=== PATIENT | male | born 1980 | race African-American/Black ===

== ENCOUNTER 2016-12-08 16:12 | Emergency (ER) | payer OTHER ==
[~2016-12-08] VITALS: Ht 175.3 cm; Wt 109.8 kg
[2016-12-08] MEDS ORDERED: IV NORMAL SALINE 1000ML BAG 1,000 ML IV SCH (16:47)
--- NOTE | 2016-12-08 16:47 | PHYS DOC ---
Past Medical History Past Medical History: Constipation, Diabetes-Type II, GERD, Hypertension, Schizophrenia, Other Additional Past Medical Histor: MR,schizo-effective d/o Past Surgical History: No Surgical History Alcohol Use: Occasionally Drug Use: None Adult General Chief Complaint Chief Complaint: ABDOMINAL PAIN HPI HPI Patient is a 35 year old female who presents with abdominal pain. Patient reports he has had pain in his abdomen, most prominent in his right lower quadrant, for the past 3 weeks. He describes a stabbing pain without clear inciting or mitigating factors. This is accompanied by nausea. He also reports he has had an intermittent fever. Of note, patient has a history of constipation. He says he is unable to remember his last bowel movement. He has not taken anything for constipation recently. Review of Systems Review of Systems Constitutional: Intermittent fever Eyes: Denies change in visual acuity or eye pain HENT: Denies nasal congestion or sore throat Respiratory: Denies cough or shortness of breath Cardiovascular: Denies chest pain GI: Abdominal pain most prominent in RLQ, nausea, vomiting, constipation. Denies bloody stools or diarrhea : Denies dysuria or hematuria Musculoskeletal: Denies back pain or joint pain Integument: Denies rash or skin lesions Neurologic: Denies headache, focal weakness or sensory changes Current Medications Current Medications Current Medications Medications (Trade) Dose Ordered Sig/Aurelio Start Time Stop Time Status Last Admin Dose Admin Info (Do NOT chart on this entry -- for MONITORING) 1 each PRN DAILY PRN 12/08/16 17:15 12/10/16 17:14 Iohexol (Omnipaque 300 Mg/ml) 75 ml 1X ONCE 12/08/16 17:00 12/08/16 17:01 DC 12/08/16 17:37 75 ML Morphine Sulfate 4 mg 1X ONCE 12/08/16 17:00 12/08/16 17:01 DC 12/08/16 17:21 4 MG Ondansetron HCl (Zofran) 4 mg 1X ONCE 12/08/16 17:00 12/08/16 17:01 DC 12/08/16 17:19 4 MG Sodium Biphosphate/ Sodium Phosphate (Fleet Adult) 133 ml 1X ONCE 12/08/16 19:30 12/08/16 19:31 DC Sodium Chloride (Iv Sodium Chloride 0.9% 1000ml Bag) 1,000 ml @ 1,000 mls/hr Q1H 12/08/16 16:47 12/08/16 17:46 DC 12/08/16 17:17 1,000 MLS/HR Allergies Allergies Allergies Coded Allergies Type Severity Reaction Last Updated Verified Penicillins Allergy Intermediate 12/08/16 Yes Sulfa (Sulfonamide Antibiotics) Allergy Intermediate 12/08/16 Yes ketorolac Allergy Intermediate 12/08/16 Yes trimethoprim Allergy Intermediate 12/08/16 Yes Physical Exam Physical Exam Constitutional: Well developed, well nourished, no acute distress, non-toxic appearance HENT: Normocephalic, atraumatic, bilateral external ears normal Eyes: EOMI, conjunctiva normal, no discharge Neck: Normal range of motion, no stridor Cardiovascular: Heart rate normal, regular rhythm, no murmur Lungs & Thorax: Bilateral breath sounds clear to auscultation Abdomen: Bowel sounds normal, soft, non-distended, RLQ TTP without guarding or rebound Skin: Warm, dry, no erythema, no rash Extremities: No obvious deformity, no edema Neurologic: Alert and oriented X 3, no gross deficits noted Current Patient Data Vital Signs Vital Signs Date Time Temp Pulse Resp B/P Pulse Ox O2 Delivery O2 Flow Rate FiO2 12/08/16 17:21 101 16 169/108 100 Room Air 12/08/16 16:36 97.7 97.7 Lab Values Laboratory Tests Test 12/08/16 16:40 White Blood Count 7.3x10^3/uL (4.0-11.0) Red Blood Count 4.46x10^6/uL (4.30-5.70) Hemoglobin 11.8g/dL (13.0-17.5) L Hematocrit 36.3% (39.0-53.0) L Mean Corpuscular Volume 81fL (79-100) Mean Corpuscular Hemoglobin 26pg (25-35) Mean Corpuscular Hemoglobin Concent 33g/dL (31-37) Red Cell Distribution Width 15.0% (11.5-14.5) H Platelet Count 182x10^3/uL (140-400) Neutrophils (%) (Auto) 54% (31-73) Lymphocytes (%) (Auto) 28% (24-48) Monocytes (%) (Auto) 15% (0-9) H Eosinophils (%) (Auto) 2% (0-3) Basophils (%) (Auto) 0% (0-3) Neutrophils # (Auto) 4.0x10^3uL (1.8-7.7) Lymphocytes # (Auto) 2.1x10^3/uL (1.0-4.8) Monocytes # (Auto) 1.1x10^3/uL (0.0-1.1) Eosinophils # (Auto) 0.1x10^3/uL (0.0-0.7) Basophils # (Auto) 0.0x10^3/uL (0.0-0.2) Sodium Level 139mmol/L (136-145) Potassium Level 4.2mmol/L (3.5-5.1) Chloride Level 102mmol/L (98-107) Carbon Dioxide Level 30mmol/L (21-32) Anion Gap 7 (6-14) Blood Urea Nitrogen 15mg/dL (8-26) Creatinine 1.1mg/dL (0.7-1.3) Estimated GFR (Cockcroft-Gault) 76.6 BUN/Creatinine Ratio 14 (6-20) Glucose Level 83mg/dL (70-99) Calcium Level 8.6mg/dL (8.5-10.1) Total Bilirubin 0.2mg/dL (0.2-1.0) Aspartate Amino Transferase (AST) 15U/L (15-37) Alanine Aminotransferase (ALT) 30U/L (16-63) Alkaline Phosphatase 50U/L (46-116) Total Protein 7.8g/dL (6.4-8.2) Albumin 3.8g/dL (3.4-5.0) Albumin/Globulin Ratio 1.0 (1.0-1.7) Lipase 85U/L (73-393) Laboratory Tests 12/08/16 16:40 Laboratory Tests 12/08/16 16:40 EKG EKG [] Radiology/Procedures Radiology/Procedures CT A/P: IMPRESSION Moderate fecal retention within the rectosigmoid region. No acute abnormality of the abdomen or pelvis is evident otherwise. Course & Med Decision Making Course & Med Decision Making Pertinent Labs and Imaging studies reviewed. (See chart for details) Patient is 35-year-old male who presents abdominal pain. Possibly related to constipation. However he does complain of right lower quadrant pain and is tender in that area, so will obtain CT abdomen/pelvis to rule out appendicitis. Labs ordered. IV fluids, pain medication, nausea medication ordered for relief of symptoms. Labs unremarkable, no leukocytosis. CT results as above. Discussed findings with patient. Discussed manual disimpaction with patient, which he declines. We will however give him a Fleet enema in the emergency department. Will plan discharge to the care of law enforcement with prescription for laxatives, instructions for follow-up, return precautions. Dragon Disclaimer Dragon Disclaimer This electronic medical record was generated, in whole or in part, using a voice recognition dictation system. Departure Departure Impression: Primary Impression: Constipation Disposition: 05 TRANSFER OTHER Condition: STABLE Patient Instructions: Constipation, Adult Additional Instructions: Thank you for allowing us to provide care today in the Emergency Department. Take the provided medication as directed. Schedule a follow up appointment with your primary care doctor. Return promptly to the Emergency Department if you develop any new or concerning symptoms. Scripts Docusate Sodium 100 Mg Capsule1 Cap PO DAILY #30 CAP Prov:JOSE ANGEL LOUIE MD 12/08/16 Sennosides (Senna)8.6 Mg Tablet8.6 Mg PO DAILY #30 Prov:JOSE ANGEL LOUIE MD 12/08/16 Polyethylene Glycol 3350 (Miralax)17 Gm Powd.pack1 Packet PO DAILY #30 PACKET Ref 0 Prov:JOSE ANGEL LOUIE MD 12/08/16 JOSE ANGEL LOUIE MD Dec 08, 2016 16:47
[2016-12-08 16:54] LABS: BASO % 0 % (0-3); EOS % 2 % (0-3); HEMATOCRIT 36.3 % (39.0-53.0); HEMOGLOBIN 11.8 g/dL (13.0-17.5); LYMPH # 2.1 x10^3/uL (1.0-4.8); LYMPH % 28 % (24-48); MEAN CORPUSCULAR HEMOGLOBIN 26 pg (25-35); MEAN CORPUSCULAR HGB CONC 33 g/dL (31-37); MEAN CORPUSCULAR VOLUME 81 fL (79-100); MONO % 15 % (0-9); NEUT % 54 % (31-73); PLATELET COUNT 182 x10^3/uL (140-400); RED BLOOD COUNT 4.46 x10^6/uL (4.30-5.70); WHITE BLOOD COUNT 7.3 x10^3/uL (4.0-11.0)
[2016-12-08] MEDS ORDERED: MORPHINE SULFATE 4 MG/ML DISP.SYRIN. IV ONE (17:00)
[2016-12-08] MEDS ORDERED: ONDANSETRON PF 4 MG/2 ML VIAL. IV ONE (17:00)
[2016-12-08] MEDS ORDERED: IOHEXOL 300 MG/ML 75 ML VIAL IV ONE (17:00)
[2016-12-08] MEDS ORDERED: CONTRAST GIVEN MC PRN (17:15)
[2016-12-08 17:21] LABS: CALCIUM 8.6 mg/dL (8.5-10.1); CREATININE 1.1 mg/dL (0.7-1.3); GFR 76.6; POTASSIUM 4.2 mmol/L (3.5-5.1)
[2016-12-08 17:29] LABS: ALBUMIN 3.8 g/dL (3.4-5.0); TOTAL BILIRUBIN 0.2 mg/dL (0.2-1.0); TOTAL PROTEIN 7.8 g/dL (6.4-8.2)
--- NOTE | 2016-12-08 18:06 | RAD ---
PROCEDURE CT study of the abdomen and pelvis with contrast HISTORY Right lower quadrant pain for 3 weeks. No bowel movement for 3 weeks. TECHNIQUE After IV infusion of 75 cc of Omnipaque 300, helical CT scanning of the abdomen and pelvis was performed. No GI contrast was administered. This may decrease the sensitivity to detect GI tract pathology. One or more of the following individualized dose reduction techniques were utilized for this study: 1. Automated exposure control 2. Adjustment of the mA and/or kV according to patient size 3. Use of iterative reconstruction technique COMPARISON None available. FINDINGS The liver and spleen and pancreas and gallbladder are normal. No biliary ductal dilatation is seen. Solitary right kidney is seen. No hydronephrosis or hydroureter is seen. Urinary bladder wall is smooth. No adrenal mass is seen. No focal aneurysmal dilatation of the abdominal aorta is seen. No enlarged abdominal or lymphadenopathy is seen. No obstructive bowel pattern is evident. The terminal ileum is unremarkable. The appendix is short in length but otherwise unremarkable. There is mild fecal retention throughout the colon and moderate fecal retention within the rectosigmoid region. No bowel wall thickening is seen. No mesenteric inflammatory change is evident. No free fluid or free air is evident. No lung base consolidation is seen. No osteolytic process is evident. IMPRESSION Moderate fecal retention within the rectosigmoid region. No acute abnormality of the abdomen or pelvis is evident otherwise. Electronically signed by: Keyur Graff MD (Dec 08, 2016 18:05:11)
[2016-12-08] MEDS ORDERED: DOCU100C5 PO (19:18)
[2016-12-08] MEDS ORDERED: POLY17PO5 PO (19:18)
[2016-12-08] MEDS ORDERED: SENN8.6T3 PO (19:18)
[2016-12-08] MEDS ORDERED: SODIUM PHOSPHATES 19/7GM 133 ML ENEMA. PR ONE (19:30)
[2016-12-08 19:53] VITALS: BP 158/95
== END 2016-12-08 20:24 | disposition home or self-care (01) ==
LOC: ER 16:12 → EEVIPCON 16:12 → ER 20:24
DX: K59.00 Constipation, unspecified (principal); R10.31 Right lower quadrant pain; K21.9 Gastro-esophageal reflux disease without esophagitis; E11.9 Type 2 diabetes mellitus without complications; I10 Essential (primary) hypertension; F20.9 Schizophrenia, unspecified; Z88.0 Allergy status to penicillin; Z88.2 Allergy status to sulfonamides; Z88.6 Allergy status to analgesic agent; Z88.8 Allergy status to other drugs, medicaments and biological substances
CPT/HCPCS: 36415; 74177; 80053; 83690; 85027; 96361; 96374; 96375; 99285; J2270; J2405; J7030; Q9967